=== PATIENT | female | born 1980 | race Caucasian/White ===

== ENCOUNTER 2017-03-13 11:31 | Emergency (ER) | payer OTHER ==
[2017-03-13 11:48] VITALS: BP 146/57
--- NOTE | 2017-03-13 12:12 | UC ---
FLU HPI - HPI Summary HPI Summary: Patient presents to the with CC of fatigue, cough, congestion and DUGAN. She states she has had the flu and this feels similar. Symptoms began yesterday. She is wanting assurance this is not the flu as she has children at home. Denies neck pain, photophobia or abdominal pain. She is just generally feeling fatigued with a cold. Denies known fevers, sweats or chills. Otherwise healthy. Sore throat as well, but no history of strep. - History of Current Complaint Chief Complaint: UCRespiratory Stated Complaint: FLU SYMPTOMS Time Seen by Provider: 03/13/17 11:42 Hx Obtained From: Patient Hx Last Menstrual Period: 02/27 ?: No Onset/Duration: Sudden Onset Severity Currently: Mild Severity Initially: Mild Pain Intensity: 2 Pain Scale Used: 0-10 Numeric Associated Signs & Symptoms: Positive: F/C, Myalgia, Cough, Nasal Congestion, Headache - Risk Factors Influenza Risk Factors: Negative - Allergy/Home Medications Allergies/Adverse Reactions: Allergies Allergy/AdvReac Type Severity Reaction Status Date / Time Latex Allergy Rash Verified 03/13/17 11:48 Home Medications: Home Medications Ibuprofen TAB* [Motrin TAB* 600 MG] 600 mg PO ONCE PRN 03/13/17 [History Confirmed 03/13/17] Loratadine [Alavert] 10 mg PO BEDTIME PRN 03/13/17 [History Confirmed 03/13/17] PMH/Surg Hx/FS Hx/Imm Hx Previously Healthy: Yes - Surgical History Surgical History: Yes Surgery Procedure, Year, and Place: 3 miscarraiges and D&Cs - Family History Known Family History: Positive: Hypertension - Social History Occupation: Employed Full-time Lives: With Family Alcohol Use: Occasionally Substance Use Type: None Smoking Status (MU): Former Smoker Type: Cigarettes Amount Used/How Often: 1/2 PPD Length of Time of Smoking/Using Tobacco: 10 Years Have You Smoked in the Last Year: No When Did the Patient Quit Smoking/Using Tobacco: 2008 - Immunization History Most Recent Influenza Vaccination: Fall 2013 Review of Systems Constitutional: Chills, Fatigue Skin: Negative Eyes: Negative ENT: Sore Throat Respiratory: Cough Cardiovascular: Negative Gastrointestinal: Negative Motor: Negative Neurovascular: Negative Musculoskeletal: Myalgia Neurological: Headache Psychological: Negative Is Patient Immunocompromised?: No All Other Systems Reviewed And Are Negative: Yes Physical Exam Triage Information Reviewed: Yes Appearance: Well-Appearing, Well-Nourished Vital Signs: Initial Vital Signs Temp 99.6 F 03/13/17 11:41 Pulse 106 03/13/17 11:41 Resp 16 03/13/17 11:41 BP 146/57 03/13/17 11:41 Pulse Ox 99 03/13/17 11:41 Vital Signs Reviewed: Yes Eye Exam: Normal Eyes: Positive: Conjunctiva Clear Neck exam: Normal Neck: Positive: Supple, No Lymphadenopathy Respiratory Exam: Normal Respiratory: Positive: Chest non-tender, Lungs clear Cardiovascular Exam: Normal Cardiovascular: Positive: RRR Musculoskeletal Exam: Normal Musculoskeletal: Positive: Strength Intact Neurological Exam: Normal Neurological: Positive: Alert Psychological Exam: Normal Psychological: Positive: Normal Response To Family Skin Exam: Normal Flu Course/Dx - Course Course Of Treatment: Patient states she is only here for a flu swab. She understands viral illnesses otherwise will require supportive care. 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 Flu negative and patient made aware. VS stable. Lungs CTA, no pharyngeal erythema and no LAD on physical exam. Denies fevers, sweats or chills. She is given supportive treatment for viral syndrome. She is OK with plan and discharge. Return precautions given. - Differential Dx/Diagnosis Differential Diagnosis/HQI/PQRI: Influenza, Upper Respiratory Infection Provider Diagnoses: Viral Illness Discharge - Discharge Plan Condition: Stable Disposition: HOME Patient Education Materials: Viral Syndrome (ED) Referrals: Josiah Lewis INDEPENDENT LIVING INSTRUCTOR [Primary Care Provider] - Additional Instructions: Supportive care is best. Humidifier in the home will help. Tylenol for discomfort. Take all medications as directed. Symptoms should resolve in 1-3 weeks. If symptoms become worse, please come back to or go to the ED. Honey and lemon hot tea Rest plenty of fluids.
== END 2017-03-13 12:31 | disposition home or self-care (01) ==
LOC: UCCORT 11:31
DX: B34.9 Viral infection, unspecified (principal); Z87.891 Personal history of nicotine dependence
CPT/HCPCS: 87502; 99211; G0463

== ENCOUNTER 2017-06-14 10:00 | Day surgery (SDC) | payer OTHER ==
--- NOTE | 2017-06-07 20:08 | HP ---
PREOPERATIVE HISTORY AND PHYSICAL: DATE OF SURGERY/ADMISSION: 06/14/17 - [facility] DATE OF OFFICE VISIT: 06/05/17 ATTENDING SURGEON: Floresita Sotelo MD * (DICTATED BY AUBREE WONG) PROCEDURE: Excision mass, right wrist. CHIEF COMPLAINT: Mass, right wrist. 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 It has been present since January of 2015. She reports she fell while running at that time and injured her wrist and the mass slowly developed over time. She complains of pain on bearing weight on the wrist and also with cooking and lifting. The mass has fluctuated in size. She does have some symptoms of tingling in her index finger, which she thinks is associated with the mass and she feels like her index finger extensor tendon is popping over the mass. She would like to have it removed. She has consented to proceed with surgical intervention at this time in the form of an excision mass right wrist. PAST MEDICAL HISTORY: 1. History of panic attacks/anxiety. 2. Seasonal allergies. PAST SURGICAL HISTORY: Numerous D and Es and D and Cs secondary to 3 second trimester miscarriages. CURRENT MEDICATIONS: 1. Claritin 10 mg daily. 2. Escitalopram oxalate 10 mg one and half tabs daily. 3. Fluticasone propionate 50 mcg/act. 4. Ibuprofen 200 mg 2 tabs p.r.n. 5. Lexapro. 6. Multivitamins daily. ALLERGIES: No known drug allergies. The patient is allergic to LATEX. FAMILY MEDICAL HISTORY: Breast cancer, colon cancer, heart disease, and congestive heart failure. SOCIAL HISTORY: The patient is a realtor. She is a former smoker. She quit approximately 8-1/2 years ago, prior to that she smoked half a pack a day for 13 years. She denies recreational drug use. She does drink alcohol on occasion. REVIEW OF SYSTEMS: General: Negative for fevers, chills, or night sweats. No known anesthesia problems. HEENT: Negative for headache, lightheadedness, or syncopal episodes. Integumentary: Negative for abrasions, lesions, or open wounds. Cardiothoracic: Negative for hypertension, chest pain, palpitations, or edema. Pulmonary: Negative for shortness of breath with exertion, chronic cough, COPD. GI: Negative for nausea, vomiting, diarrhea, constipation, or GERD. : Negative for nocturia, urinary frequency, urgency, history of UTIs, or kidney problems. Musculoskeletal: Positive for current complaint. Negative for chronic or intermittent back pain or history of fractures. Neurological: Positive for history of anxiety attacks and anxiety. Negative for paresthesias or numbness. Negative for history of seizure or stroke. Endocrine: Negative for diabetes or thyroid issues. Hematologic: Negative for easy bruising, anemia, excessive bleeding, or history of DVT. Infectious Disease: Negative for history of MRSA, hepatitis C, or HIV. PHYSICAL EXAMINATION GENERAL: Well-developed, well-nourished 37-year-old female, in no acute distress. VITAL SIGNS: Height 5 feet 5 inches, weight 212 pounds, pulse rate 72, blood pressure 122/80. HEENT: Normocephalic, atraumatic. Pupils are equal, round, and reactive to light and accommodation. Extraocular movements are intact. Throat is clear. NECK: Supple. No palpable lymph nodes. PULMONARY: Lungs are clear to auscultation bilaterally. No wheezes, rales, or rhonchi. CARDIOVASCULAR: Regular rate and rhythm. S1, S2. No murmurs, rubs, or gallops. No edema. ABDOMEN: Positive bowel sounds, soft, nontender. NEUROLOGICAL: Alert, and oriented x3. Cranial nerves II through XII are intact. Sensation is intact to light touch. PERIPHERAL/VASCULAR: 2+ radial and ulnar pulses. Negative Brando test. MUSCULOSKELETAL: On exam of the right wrist, there is no visible swelling. There is a 1.5 cm in diameter mass on the dorsal aspect of the radiocarpal joint. It is tender to palpation. She has pain with full extension of her wrist, but has full motion in both flexion and extension. She can make a full fist. Neurovascular function is intact. IMAGING STUDIES: X-rays AP, lateral and oblique of the right wrist appear normal. IMPRESSION: Right wrist dorsal ganglion. PLAN: The patient is scheduled to undergo an excision mass right wrist with Dr. Sotelo on 06/14/17. She will return to the office in 10 to 14 days postop for followup and suture removal. A prescription for Tylenol No. 3 was e- scribed to the patient's pharmacy for postoperative pain management. AUBREE WONG [id number]/[facility] #: [id number] [facility]ENTERSoheila
[~2017-06-14 10:00] MED LIST: Buffered Lidocaine 0.9% SYRIN* 5 ML/SYR SYRINGE INTRADERM ONE; Lidocaine 1% INJ* 10 MG/ML 30 ML SDV ONE
[2017-06-14] MEDS ORDERED: Ondansetron INJ* 2 MG/ML VIAL IV PRN (10:47)
[2017-06-14] MEDS ORDERED: Acetaminophen TAB* 325 MG PO PRN (10:47)
[2017-06-14] MEDS ORDERED: Naloxone* 0.4 MG/ML 1 ML VIAL IV PRN (10:47)
[2017-06-14] MEDS ORDERED: Midazolam* 1 MG/ML 2 ML VIAL (2 MG) ONE ×2 (10:59→11:55)
[2017-06-14] MEDS ORDERED: fentaNYL* 50 MCG/ML 2 ML VIAL (100 MCG VIAL) ONE (10:59)
[2017-06-14] MEDS ORDERED: Lidocaine 2% PF * 5 ML VIAL ONE (11:36)
[2017-06-14] MEDS ORDERED: Ketorolac INJ* 30 MG/ML 1 ML VIAL ONE (11:36)
[2017-06-14] MEDS ORDERED: Propofol* 10 MG/ML 20 ML BTL IV PUSH ONE (11:36)
[2017-06-14 12:30] VITALS: BP 131/70
--- NOTE | 2017-06-15 05:47 | OP ---
DATE OF OPERATION: 06/14/17 [facility] DATE OF : 82 SURGEON: Floresita Sotelo MD DREDGING INSPECTOR: AUBREE Desir ANESTHESIA: Local MAC. PRE-OP DIAGNOSIS: Ganglion cyst on the right wrist. POST-OP DIAGNOSIS: Ganglion cyst on the right wrist. OPERATIVE PROCEDURE: Removal of ganglion cyst, right wrist. ESTIMATED BLOOD LOSS: Zero. TOURNIQUET TIME: About 15 minutes. INDICATIONS FOR PROCEDURE: Ms. Reese is a 37-year-old female with a painful mass on the dorsal aspect of the right wrist. She presents for removal. DESCRIPTION OF PROCEDURE: The patient was brought to the operating room, was given a sedation anesthetic, and a local infiltration of total of 15 cc of 1% plain lidocaine. The skin of her right hand and forearm was prepped and draped in the usual sterile fashion. The hand and forearm were exsanguinated and the tourniquet elevated to 250 mmHg. A transverse incision was made and centered over the mass. We dissected bluntly through the subcutaneous tissue. The extensor tendons were located and retracted by the assembler surgical garment, Preethi Allen. The ganglion cyst was then traced with its stalk down to the wrist joint capsule and removed with a small portion of the joint capsule. The edges of the capsule were cauterized with the Bovie. The wound was irrigated and the skin edges were reapproximated with 4-0 nylon suture. The wound was dressed with Xeroform, 4x4, Webril, and an Vahid wrap. The patient tolerated the procedure well and was brought to the recovery room in good condition. [id number]/[facility] #: [id number] [facility]ENTERSoheila
== END 2017-06-14 12:34 | disposition home or self-care (01) ==
LOC: OREAST 10:00
PROVIDERS: ATTEND Orthopaedic Surgery
DX: M67.431 Ganglion, right wrist (principal); F41.0 Panic disorder [episodic paroxysmal anxiety]; Z87.891 Personal history of nicotine dependence; J30.2 Other seasonal allergic rhinitis
CPT/HCPCS: 81025; 88304; J1885; J2250; J2704; J3010

== ENCOUNTER 2018-12-06 14:47 | Emergency (ER) | payer OTHER ==
[2018-12-06 15:11] VITALS: BP 147/70
--- NOTE | 2018-12-06 15:30 | UC ---
Throat Pain/Nasal Kvng HPI - HPI Summary HPI Summary: ONSET OVER TWO WEEKS AGO WITH A SORE THROAT, RUNNY NOSE,COUGH. THIS MORNING FELT WORSE. HEAD AND CHEST CONGESTION, COUGH IS NON PRODUCTIVE. STATES FEVER TODAY AT HOME 100.7 [ End ] - History of Current Complaint Chief Complaint: UCRespiratory Stated Complaint: UPPER RESPITORY Time Seen by Provider: 12/06/18 15:05 Hx Obtained From: Patient Hx Last Menstrual Period: 11/21/18 Onset/Duration: Sudden Onset, Lasting Weeks Severity: Moderate Pain Intensity: 5 Associated Signs & Symptoms: Positive: Dysphagia, Wheezing, Sinus Discomfort, Nasal Discharge - Allergies/Home Medications Allergies/Adverse Reactions: Allergies Allergy/AdvReac Type Severity Reaction Status Date / Time latex Allergy Unknown Rash And Verified 12/06/18 15:01 Itching Seasonal Allergies Allergy Eyes Uncoded 12/06/18 15:01 Itchy/Swollen/Red/Watery COLD MEDICINE, INHALERS AdvReac Severe HEART Uncoded 12/06/18 15:10 RACES AND PANIC ATTACKS PMH/Surg Hx/FS Hx/Imm Hx Previously Healthy: Yes - Surgical History Surgical History: Yes Surgery Procedure, Year, and Place: 3 miscarriages and 1 D&C, 2 D&Es-latest 2015- [place] [facility] - 2000 [place]. GANGLION CYST REMOVED-RIGHT WRIST - Family History Known Family History: Positive: Hypertension - Social History Alcohol Use: Rare Substance Use Type: None Smoking Status (MU): Former Smoker Type: Cigarettes Amount Used/How Often: 1/2 PPD Length of Time of Smoking/Using Tobacco: 10 Years Have You Smoked in the Last Year: No When Did the Patient Quit Smoking/Using Tobacco: 2008 - Immunization History Most Recent Influenza Vaccination: Fall 2013 Review of Systems All Other Systems Reviewed And Are Negative: Yes Constitutional: Positive: Fever ENT: Positive: Sore Throat, Ear Ache, Nasal Discharge, Sinus Congestion Respiratory: Positive: Cough Is Patient Immunocompromised?: No Physical Exam Triage Information Reviewed: Yes Appearance: Well-Nourished, Ill-Appearing, Pain Distress Vital Signs: Initial Vital Signs Temp 98.6 F 12/06/18 15:02 Pulse 90 12/06/18 15:02 Resp 16 12/06/18 15:02 BP 147/70 12/06/18 15:02 Pulse Ox 99 12/06/18 15:02 Vital Signs Reviewed: Yes Eye Exam: Normal ENT: Positive: Pharyngeal erythema - with PND, Nasal congestion, TM bulging - left ear, Sinus tenderness Dental Exam: Normal Neck exam: Normal Respiratory: Positive: Chest non-tender, Lungs clear, Normal breath sounds Cardiovascular Exam: Normal Abdominal Exam: Normal Musculoskeletal Exam: Normal Neurological Exam: Normal Psychological Exam: Normal Skin Exam: Normal Throat Pain/Nasal Course/Dx - Course Course Of Treatment: hx obtained, exam performed ,meds reviewed, treated for sinusitis - Differential Dx/Diagnosis Differential Diagnosis/HQI/PQRI: Otitis Media, Pharyngitis, Sinusitis, URI Provider Diagnosis: Sinusitis Discharge - Sign-Out/Discharge Documenting (check all that apply): Patient Departure All imaging exams completed and their final reports reviewed: No Studies - Discharge Plan Condition: Stable Disposition: HOME Prescriptions: Amoxicillin PO (*) [Amoxicillin 875 MG (*)] 875 mg PO BID #20 tab Patient Education Materials: Sinusitis (ED) Referrals: Josiah Lewis, REMOVABLE PROSTHODONTIST [Primary Care Provider] - Additional Instructions: 1. take the medication as prescribed. 2. salt water gargles, warm fluids for the thrat 3. Ibuprofen or Tylenol as needed for pain and fever 4. FOllow up if not improving. - Billing Disposition and Condition Condition: STABLE Disposition: Home - Attestation Statements Provider Attestation: Per institutional requirements, I have reviewed the chart, however, I was not consulted specifically or made aware of this patient by the midlevel provider. I did not personally evaluate, interact with , or disposition this patient.
== END 2018-12-06 15:35 | disposition home or self-care (01) ==
LOC: UCCORT 14:47
DX: J32.9 Chronic sinusitis, unspecified (principal); Z87.891 Personal history of nicotine dependence
CPT/HCPCS: 99212; G0463